=== PATIENT | female | born 1945 | race Caucasian/White ===

== ENCOUNTER 2016-10-11 21:40 | Observation (INO) | payer MEDICARE ==
[~2016-10-11] VITALS: Ht 174 cm; Wt 95.3 kg
--- NOTE | ~2016-10-11 | ECH ---
Transthoracic Echocardiography Report (TTE) Demographics Patient Name MAYRA HEREDIA Date of Study 10/12/2016 Patient Number [id number] Visit Number [id number] Date of 1945 Room Number 407 Accession Number [id number] Gender Female Age 71 year(s) Referring Marina FERRIS Pot Room Tapper eDlia Nelson Physician Lamberto Murphy MD Physician Interpreting Marina FERRIS [employer] Physician Lamberto Supervising Ordering Physician Marina FERRIS MD/DEBORAH Orantes Nurse Stress Advanced Nursing Professor Conclusions Contractility Score Summary Normal Left Ventricular contractility was noted. Summary Technically difficult exam. The estimated left ventricular ejection fraction is 55-60%. The left ventricle is mildly dilated . The left atrium is mildly dilated by LA volume index measurement. No significant valvular abnormalities. Recommendation The patient will be given the results of this study by the physician who ordered the exam. Procedure Type of Study TTE procedure:Echo Complete SF. Procedure Date Date: 10/12/2016 Start: 01:01 PM Technical Quality: Adequate visualization Indications:Atypical Chest Pain, Shortness of breath, Atrial fibrillation and Hypertension. Appropriate Use Criteria: 9 Height: 68 inches Weight: 210 pounds BSA: 2.09 m Rhythm: Sinus bradycardia HR: 53 bpm BP: 124/66 mmHg M-Mode/2D Measurements LV Diastolic Dimension: 5.34 cm LV Systolic Dimension: 3.15 cm LV Septum Diastolic: 0.89 cm LV PW Diastolic: 0.84 cm AO Root Dimension: 2.55 cm Cardiac Output: 5.61 l/min LA Dimension: 4.27 cm Cardiac Index: 2.68 l/min*m RV Diastolic Dimension: 3.4 cm LA volume index: 35 ml/m LVOT: 1.94 cm LVOT VTI: 35.84 cm RV Base: 3.6 cm LV Stroke volume: 105.89 ml RV Mid: 2.5 cm LV Stroke volume index: 50.67 ml/m TAPSE: 2.7 cm TDI-S': 12 cm/s Doppler Measurements AV Peak Velocity: 1.7 m/s MV Peak E-Wave: 1.03 m/s AV Peak Gradient: 11.56 mmHg MV Peak A-Wave: 0.59 m/s AV Mean Gradient: 6.44 mmHg MV E/A Ratio: 1.76 LVOT Peak Velocity: 1.37 m/s MV P1/2t: 70.3 msec AV Area (Continuity):2.37 cm MV Deceleration Time: 248.6 msec TR Velocity:2.55 m/s MV Area (PHT): 3.13 cm TR Gradient:26.01 mmHg PV Peak Velocity: 0.91 m/s Estimated RAP:3 mmHg PV Peak Gradient: 3.31 mmHg Estimated RVSP: 29 mmHg Estimated PASP: 29.01 mmHg E' Septal Velocity: 0.09 m/s A' Septal Velocity: 0.05 m/s E' Lateral Velocity: 0.11 m/s A' Lateral Velocity: 0.06 m/s RA Area: 17.4 cm Findings Left Ventricle The left ventricle is mildly dilated . Diastolic assessment reveals normal relaxation. Right Ventricle Normal right ventricle structure and function. Left Atrium The left atrium is mildly dilated by LA volume index measurement. Right Atrium Normal right atrial size. Mitral Valve Mild mitral annular calcification. Trivial mitral regurgitation by color Doppler. Aortic Valve Normal aortic valve structure and function. Tricuspid Valve Normal tricuspid valve structure and function. Trivial tricuspid regurgitation by color Doppler. Normal pulmonary pressures. Pulmonic Valve The pulmonic valve is not well visualized. Pericardial Effusion No evidence of pericardial effusion. Miscellaneous Visualized portions of the aortic root and ascending aorta appear normal in size. Pleural Effusion No evidence of pleural effusion. Contractility Score LV regional wall motion:(0-Non visualized 1-Normal 2-Hypokinesis 3-Akinesis 4-Dyskinesis 5-Aneurysm) Signature
[2016-10-13] MEDS ORDERED: MODURETIC 5/501 TAB PO (21:53)
[2016-10-13] MEDS ORDERED: NORVASC5 MG PO (21:54)
[2016-10-13] MEDS ORDERED: ATORVASTATIN CA40 MG PO (21:54)
[2016-10-13] MEDS ORDERED: CORDARONE DPS200 MG PO (21:54)
[2016-10-13] MEDS ORDERED: FINACEA50 GM TP (21:55)
[2016-10-13] MEDS ORDERED: CATAPRES-DPS0.1 MG PO (21:55)
[2016-10-13] MEDS ORDERED: ATIVAN-DPS1 MG PO (21:55)
[2016-10-13] MEDS ORDERED: COZAAR100 MG PO (21:56)
[2016-10-13] MEDS ORDERED: METROGEL 0.75%45 GM TP (21:56)
[2016-10-13] MEDS ORDERED: COUMADIN4 MG PO (21:57)
[2016-10-13] MEDS ORDERED: ZANTAC300 MG PO (21:57)
[2016-10-13] MEDS ORDERED: NORCO 5-325 TA1 EACH PO (21:57)
[2016-10-13] MEDS ORDERED: KLOR-CON M2020 ME1 PO (21:57)
[2016-10-13] MEDS ORDERED: [UNRECOGNIZED DRUG - OTHER] TP (21:58)
--- NOTE | 2016-10-17 07:55 | ER ---
ADMIT: 10/11/2016 RM/LOC: 407 [facility] MR#: [id number] [id number] [facility] [address] [place], [place] [address] MAYRA HEREDIA [address] [place] [address] Emergency Room Report SEX: F AGE: 71 : 1945 DATE: 10/11/2016 ADDENDUM: CHIEF COMPLAINT: Chest pain. HISTORY OF PRESENT ILLNESS: The patient is a 71-year-old female, presents to the ER complaining of heaviness in her chest that began about 5 hours ago. She states it radiates into her left arm and has tingling into her left arm. She does feel short of breath with this, but no nausea, no vomiting, no sweating. She was feeling fine earlier in the day. She has had some symptoms like this many years ago, but nothing recently. She does have a history of a non-STEMI back in 2011, when she had a catheterization done, found some non- occlusive disease and did not have any stents placed at that time. REVIEW OF SYSTEMS: A 10-point review of systems is done and otherwise negative except as in HPI. PAST MEDICAL HISTORY: Significant for coronary artery disease, AFib, hypertension, hyperlipidemia, non-STEMI [place]. PAST SURGICAL HISTORY: She has had a previous ablation done. MEDICATIONS: See nurse's note. She is on: 1. Aspirin. 2. Coumadin. ALLERGIES: TO VICODIN. SOCIAL HISTORY: Denies smoking, drug, or alcohol use. PHYSICAL EXAMINATION: GENERAL: The patient is alert, oriented, in no distress. HEAD: Atraumatic. HEART: Regular rate and rhythm. LUNGS: Clear to auscultation. ABDOMEN: Soft, nontender, and nondistended. SKIN: Warm and dry. ADMIT: 10/11/2016 RM/LOC: 407 [facility] MR#: [id number] [address] [facility] [address] [place] [id number] MAYRA HEREDIA [address] [place] [address] Emergency Room Report SEX: F AGE: 71 : 1945 EXTREMITIES: She has no pedal edema. LABORATORY DATA AND IMAGING: Chest x-ray shows nothing acute. CBC is normal. Chemistries are normal. BNP is 290. First set of cardiac enzymes is normal. EKG showed sinus rhythm, no signs of ST-elevation or acute [place]. EMERGENCY DEPARTMENT COURSE: We did our chest pain routine on the patient. She did get aspirin and nitroglycerin in the Emergency Department. She had essentially complete resolution of her chest heaviness with the nitroglycerin, and nitroglycerin paste was placed. I spoke to Dr. Starks, her primary care physician, and will be bringing the patient in for further workup of her chest pain. Eagle Hayden MD/ winston JOB #: [id number] CC: Ranjan Starks MD, Attending Physician Ranjan Starks MD, Family Physician
--- NOTE | 2016-10-17 11:20 | CO ---
ADMIT: 10/11/2016 RM/LOC: 407 [facility] MR#: [id number] [address] [facility] [address] [place], [place] [address] MAYRA HEREDIA [address] [place] [address] Consultation SEX: F AGE: 71 : 1945 DATE OF CONSULTATION: 10/12/2016 ATTENDING PHYSICIAN: Ranjan Starks CONSULTING PHYSICIAN: Lamberto Gray MD REASON FOR CONSULT: Chest discomfort. Gayle Toussaint RN, scribing for Dr. Lamberto Gray. HISTORY OF PRESENT ILLNESS: Mayra is a pleasant 71-year-old female, I have been asked in Cardiology consultation by Dr. Lamberto Gray for chest discomfort. She follows with [facility] regularly with Dr. Paul Norton, was last seen on July 09 of this year. She has history of atrial flutter status post ablation and history of paroxysmal atrial fibrillation. She has nonobstructive coronary disease per cardiac catheterization in 2011 showing a mid LAD 50% stenosis. Last echocardiogram was in November of 2015, showing normal ejection fraction at 55%. She has history of difficult to control blood pressure on multiple medications for which she reports symptoms of chest discomfort and shortness of breath when poorly controlled. Mayra presented to [facility] with complaints of chest discomfort she describes occurring for about 5 hours before presentation. She also had shortness of breath. She describes it as just a "discomfort" in her chest radiating into her neck. She checked her blood pressure, which was elevated, so she took a p.r.n. clonidine 0.1 mg. Usually this helps her symptoms when her blood pressure is elevated, however, this time it did not and she continued to have worsening shortness of breath and then developed left arm numbness which continued to increase. This concerned her, so she came into the emergency room. She was given sublingual nitroglycerin, which improved her symptoms and paste was put on which also helped resolve her symptoms. She has had palpitations off and on correlating with PVCs on telemetry. She reports yesterday morning she was feeling her normal self. She was exercising, walking on the treadmill and exercising on the NuStep without any difficulty. Currently, she continues to deny any chest discomfort. Her blood pressure is much better controlled than what it was at home, which she reports she was greater than 150s before the clonidine. Cardiac enzymes have been negative x2. EKG does not show any significant ST-T changes. PAST MEDICAL HISTORY: Hypertension, hyperlipidemia, former tobacco use, paroxysmal atrial fibrillation, atrial flutter status post ablation, nonobstructive coronary disease, osteoarthritis, anxiety, and rosacea. PAST SURGICAL HISTORY: Includes tubal ligation, cardiac ablation of atrial flutter. ALLERGIES: VICODIN. ADMIT: 10/11/2016 RM/LOC: 407 [facility] MR#: [id number] [facility] [address] [address] MAYRA HEREDIA [address] [place] [address] Consultation SEX: F AGE: 71 : 1945 MEDICATIONS: Home medications continued include: 1. Amiloride and hydrochlorothiazide 5/50 half a tab every other day. 2. Amlodipine 5 daily. 3. Amiodarone 100 mg daily. 4. Atorvastatin 40 daily. 5. Azelaic acid 15% topical gel twice daily. 6. Clonidine 0.1 mg tablet p.r.n. elevated blood pressure greater than 150. 7. Lorazepam 1 mg every 6-8 hours p.r.n. 8. Losartan 100 mg daily. 9. Metronidazole topical cream 1-2 times a day. 10.Potassium chloride 20 mEq p.o. b.i.d. 11.Ranitidine 300 mg p.o. daily. 12.Warfarin 4 mg p.o. daily. 13.Hydrocodone 5/325 every 4-6 hours p.r.n. FAMILY HISTORY: Positive family history of heart disease in brother along with cancer and stroke. SOCIAL HISTORY: Mayra lives at home. She is retired. She also helps care for her father who is 98 years old. She denies any special diet, caffeine, alcohol, drug, or tobacco use. REVIEW OF SYSTEMS: GENERAL: Denies any increased fatigue, recent fever, chills, sweats, or weight changes. EYES: Denies double vision, blurred vision, cataracts, or glaucoma. ENT: Denies hearing loss or problems with nose, mouth or throat. PULMONARY: Denies cough, sputum production, asthma, emphysema or bronchitis. Denies snoring loudly, wakefulness at night, or fatigue upon awakening. GASTROINTESTINAL: Denies heartburn or difficulty swallowing. No change in bowel habits. Denies dark or bloody stools. No history of ulcers, hiatal hernia, or gallbladder or liver disease. GENITOURINARY: Denies dysuria, hematuria, nocturia, urinary tract infection, or kidney stones. Denies history of renal insufficiency or failure. MUSCULOSKELETAL: History of osteoarthritis. Denies any gout. ENDOCRINE: Denies history of thyroid dysfunction or diabetes. HEMATOLOGIC: Denies history of anemia, easy bruising, or cancer. NEUROLOGIC: Denies chronic headaches, dizziness, syncope, stroke, seizures or numbness or tingling. PSYCHIATRIC: History of anxiety. Denies depression or mental illness. PHYSICAL EXAMINATION: VITAL SIGNS: Blood pressure is 124/66, heart rate 56, respirations 16, temperature 96.8, and oxygenation 97% on O2. SKIN: [place], warm and dry. EYES: Sclerae clear. No xanthelasmas. ENT: Oral mucosa is pink and moist. No jugular venous distention or carotid bruits. CHEST: Respirations are even and unlabored. Lungs are clear to auscultation. HEART: Regular rate and rhythm. Normal S1, S2. No murmurs, rubs or gallops. ADMIT: 10/11/2016 RM/LOC: 407 [facility] MR#: [id number] [address] [place] [address] MAYRA HEREDIA [place] [address] [place] [address] Consultation SEX: F AGE: 71 : 1945 ABDOMEN: Soft and nontender. MUSCULOSKELETAL: Gait is normal. EXTREMITIES: Peripheral pulses palpable. No clubbing, cyanosis or edema. PSYCHIATRIC: Alert and oriented. Mood and affect are appropriate. DIAGNOSTIC DATA: Sodium 143, potassium 4.1, BUN 17, creatinine 1.1, glucose 91, magnesium 2.3. ProBNP 290. INR 2.21. White blood cell count 7.9, hemoglobin 13.6, hematocrit 40.3, and platelets 255. CK at 99, MB 1.4, troponin less than 0.015 on second set. ASSESSMENT/PLAN: 1. Atypical chest pain. 2. EKG looks okay and enzymes are negative. I will check echocardiogram for wall motion abnormalities, valvular abnormalities, or decreased ejection fraction. If her echo is okay, then I would recommend to discharge at this time and schedule outpatient treadmill nuclear stress test at that time to follow up with Dr. Paul Norton in about a month. 3. Hypertension, resolved. 4. Atrial fibrillation. She is currently in normal sinus rhythm and is on anticoagulation with adequate INR. 5. PVCs. She is on amiodarone as well for the atrial fibrillation. She is symptomatic with those with palpitations. Thank you for the consultation. I have read and agree with the documentation that has been completed regarding this visit. By signing this record, I attest that the documentation was completed in my physical presence and is an accurate record of the encounter. Gayle Toussaint RN / Lamberto Gray MD / [place] JOB #: [id number] CC: Ranjan Starks, Attending Physician Ranjan Starks, Family Physician
--- NOTE | 2016-10-23 09:00 | HP ---
ADMIT: 10/11/2016 RM/LOC: 407 [facility] MR#: [id number] [address] [address] MAYRA HEREDIA [address] [address] History and Physical SEX: F AGE: 71 : 1945 DATE OF SERVICE: CHIEF COMPLAINT: Chest pressure. HISTORY OF PRESENT ILLNESS: Mayra is a very nice 71-year-old female, who is well known to my service. She has a history of coronary artery disease, anxiety, atrial fibrillation, as well as chronic left knee pain. She does currently take amiloride, hydrochlorothiazide, amiodarone, atorvastatin, clonidine, Lortab, lorazepam, losartan, as well as she is on chronic anticoagulation. She was eating pizza. She did develop severe chest pressure. No GERD, no dyspepsia, no gas, no belching, but felt like someone was pressing on her chest. She checked her blood pressure and it was quite high. She took her clonidine to try to bring her blood pressure down and continued to elevate and not responding to clonidine, therefore, she went to the ER. She did have resolution of her pain when placed on nitroglycerin paste and giving a sublingual nitro. Therefore, she is admitted and treated for cardiac chest pain. Evaluated her at her bedside, she currently has no chest pain. No GERD. No nausea. No vomiting. No abdominal pain. She is getting however a respiratory infection, but did have a persistent cough associated with primary allergies or viral URI. She does ask for something for cough. No more palpitations or anything like that since admission. PAST MEDICAL HISTORY: 1. Hypertension. 2. Hyperlipidemia. 3. Coronary artery disease. 4. Atrial fibrillation. 5. Environmental allergies. 6. Anxiety. 7. Knee pain. MEDICATIONS: 1. Amiloride. 2. Hydrochlorothiazide. 3. Amiodarone. 4. Atorvastatin. 5. Clonidine. 6. [place]. 7. Lorazepam. 8. Cozaar. 9. Potassium. 10.Zantac. 11.Coumadin. ALLERGIES: NO KNOWN MEDICAL ALLERGIES. FAMILY HISTORY: Mother is . Father with hypertension. Father with ADMIT: 10/11/2016 RM/LOC: 407 [facility] MR#: [id number] [address] [facility] [address] [place], [place] [address] MYARA HEREDIA [address] [place] [address] History and Physical SEX: F AGE: 71 : 1945 heart disease. Father with BPH. Brother had a stroke, hypertension, osteoporosis. One with multiple myeloma. SOCIAL HISTORY: She does not drink, smoke, or do drugs. REVIEW OF SYSTEMS: Complete review of systems reviewed as per HPI. PHYSICAL EXAMINATION: VITAL SIGNS: Blood pressure is 134/66, pulse 66, respiratory rate is 16, temperature is 96.8. GENERAL: She is alert and oriented x3. No acute distress. HEENT: Normocephalic and atraumatic. Extraocular movements intact. Pupils equally round and responsive to light. No nasal discharge. HEART: Bradycardic. LUNGS: Clear to auscultation. ABDOMEN: Soft, nontender. EXTREMITIES: No clubbing, cyanosis, edema. LABORATORY DATA: Hemoglobin 13.6, white blood cells 7.9, platelets are 255. INR is 221. Sodium 143, potassium 4.1, chloride is 109, bicarb is 27, BUN is 17, creatinine is 1.1, glucose 91, calcium is 8.7, troponin 0.015, next 0.015. EKG, no ST-segment elevations or anything like that. She has some mild QT little bit long. ASSESSMENT: 1. Chest pain. 2. Coronary artery disease. 3. Atrial fibrillation. 4. Hypertension. ADMIT: 10/11/2016 RM/LOC: 407 [facility] MR#: [id number] [address] [address] MAYRA HEREDIA [place] [address] [place] [address] History and Physical SEX: F AGE: 71 : 1945 5. Hyperlipidemia. 6. Chronic anticoagulation. PLAN: We will go ahead and maintain her as an observation status. Continue cardiac trend. We will repeat cardiac enzymes at noon. I will add codeine guaifenesin for some cough, and we will go and have YASMIN see this patient. We will await their direction on her further cardiac evaluation. CODE STATUS: The patient is a full code. Discussed this plan with the patient, expressed understanding, agreeable to this and had no further questions. Ranjan Starks MD/ [place] JOB #: [id number] CC: Ranjan Starks, Attending Physician Ranjan Starks, Family Physician
--- NOTE | 2016-10-24 08:30 | DS ---
ADMIT: 10/11/2016 RM/LOC: 407 [facility] MR#: [id number] [address] [place] [id number] [place], [place] [address] MAYRA HEREDIA [address] [place] [address] Discharge Summary SEX: F AGE: 71 : 1945 ADMISSION DATE: 10/11/2016 DISCHARGE DATE: 10/12/2016 CONSULTATIONS: Cardiology-Lamberto Gray MD. FINAL DIAGNOSES: 1. Chest pain. 2. Hypertension. 3. Atrial fibrillation. 4. PVCs (premature ventricular contractions). REASON FOR ADMISSION: Please see H and P. However, briefly, patient admitted for chest pain. HOSPITAL COURSE: Admitted to the service of [facility] under the care of myself, Ranjan Starks MD. Receives goal-directed therapy for her chest pain. Receives consultation with Cardiology. She did undergo trending of her enzymes and evaluation by the by the cardiologists, and they did complete an echo and outpatient stress test. DISPOSITION: Home. DISCHARGE CONDITION: Stable. DISCHARGE MEDICATIONS: See the medication reconciliation, it is reviewed and accurate. DISCHARGE INSTRUCTIONS: Discharge to home. Follow up with outpatient stress test as planned. Follow up in Dr. Starks's clinic in 2 weeks' time. Discussed plan with the patient, expressed understanding, was in agreement, and had no further questions. Ranjan Starks MD/ devin JOB #: [id number] CC: Ranjan Starks MD, Attending Physician Ranjan Starks MD, Family Physician
[2017-01-25] MEDS ORDERED: PHENERGAN DPS25 MG PO (12:40)
[2017-01-25] MEDS ORDERED: NITROSTAT0.4 MG SL (12:42)
[2017-01-25] MEDS ORDERED: LIDOCAINE37.5 GM TP (12:49)
[2017-01-25] MEDS ORDERED: ASPIR-LOW81 MG PO (12:49)
[2017-01-25] MEDS ORDERED: PRILOSEC DPS20 MG PO (12:49)
[2017-01-25] MEDS ORDERED: KENALOG CREAM 080 GM TP (12:50)
[2017-01-25] MEDS ORDERED: PREMARIN VAGINA VG (12:51)
[2017-01-25] MEDS ORDERED: CALCIUM500 MG PO (12:55)
[2017-01-25] MEDS ORDERED: [UNRECOGNIZED DRUG - OTHER] TP (12:56)
== END 2016-10-12 16:00 | disposition home or self-care (01) ==
LOC: ER 21:40 → 4PCU 23:10
PROVIDERS: ADMIT Internal Medicine
DX: R07.89 Other chest pain (principal); I25.10 Atherosclerotic heart disease of native coronary artery without angina pectoris; I48.91 Unspecified atrial fibrillation; I10 Essential (primary) hypertension; I49.3 Ventricular premature depolarization; Z98.51 Tubal ligation status; Z88.6 Allergy status to analgesic agent; Z79.891 Long term (current) use of opiate analgesic; Z79.01 Long term (current) use of anticoagulants

== ENCOUNTER → 2016-10-27 | Outpatient (CLI) | payer MEDICARE ==
[~2016-10-27] MED LIST: ASPIR-LOW81 MG PO; ATIVAN-DPS1 MG PO; ATORVASTATIN CA40 MG PO; CALCIUM500 MG PO; CATAPRES-DPS0.1 MG PO; CORDARONE DPS200 MG PO; COUMADIN4 MG PO; COZAAR100 MG PO; FINACEA50 GM TP; KENALOG CREAM 080 GM TP; KLOR-CON M2020 ME1 PO; LIDOCAINE37.5 GM TP; METROGEL 0.75%45 GM TP; MODURETIC 5/501 TAB PO; NITROSTAT0.4 MG SL; NORCO 5-325 TA1 EACH PO; NORVASC5 MG PO; PHENERGAN DPS25 MG PO; PREMARIN VAGINA VG; PRILOSEC DPS20 MG PO; ZANTAC300 MG PO; [UNRECOGNIZED DRUG - OTHER] TP; [UNRECOGNIZED DRUG - OTHER] TP
== END | disposition home or self-care (01) ==
LOC: RAD.S 08:38
DX: R04.2 Hemoptysis (principal); R05 Cough; J98.09 Other diseases of bronchus, not elsewhere classified

== ENCOUNTER → 2016-11-15 | Outpatient (CLI) | payer MEDICARE | END | disposition home or self-care (01) | LOC: RAD.S 14:34 | DX: E04.9 Nontoxic goiter, unspecified (principal); E04.1 Nontoxic single thyroid nodule ==